=== PATIENT | female | born 1945 | race Caucasian/White ===

== ENCOUNTER 2019-12-26 12:58 | Outpatient (CLI) | payer MEDICARE, BC ==
[~2019-12-26 12:58] MED LIST: BARIUM SULFATE 340 ML SUSP.RECON***PROCEDURE AREA ONLY**DONT ENTER PO ONE; GLUC-153 PO; HYDR1TAB PO; MULT-969 PO; RESV250C2 PO; UBID100C7 PO; VIT500LI PO; ZOV200C PO; [UNRECOGNIZED DRUG - CODE] PO; vit b12; vit d3 PO
== END 2019-12-26 23:59 | disposition home or self-care (01) ==
LOC: RAD 12:58
PROVIDERS: ATTEND Physician Assistant
DX: R13.10 Dysphagia, unspecified (principal)
CPT/HCPCS: 74230